=== PATIENT | female | born 1970 | race Caucasian/White ===

== ENCOUNTER 2016-07-26 18:07 | Emergency (ER) | payer SELFPAY ==
[~2016-07-26] VITALS: Ht 160 cm; Wt 59.0 kg
[2016-07-26 18:25] VITALS: BP 180/87
[2016-07-26] MEDS ORDERED: LEVO125T5 PO (19:12)
--- NOTE | 2016-07-26 19:12 | PHYS DOC ---
Past Medical History Past Medical History: Hypothyroid Past Surgical History: Cholecystectomy, , Tubal ligation Alcohol Use: None Drug Use: None Adult General Chief Complaint Chief Complaint: DIZZY/LIGHT HEADED HPI HPI Patient is a 45 year old female who presents with dizziness and out of her levothyroxine medication. Patient states she lost the prescription for her levothyroxine 2 weeks ago. Patient complains of dizziness which she relates to her not having her levothyroxine. Patient wants a prescription for her levothyroxine which is 125mcg daily does not want a workup for dizziness. Patient understands all risks including and disability however really feels that her symptoms are related to not taking her medication. Pertinent exam findings: Heart regular rate and rhythm Lungs clear to addition bilaterally ED course: Patient was seen and examined in the emergency room and since the patient does not want any workup done and just wants a prescription for levothyroxine she'll be discharged with a prescription. MDM: After reviewing the chart, CC/HPI/PMH, physical exam, I do not believe the patient has emergent medical condition warranting further workup and admission at this time. Patient declined all lab work and testing done for her dizziness and believes is due to the fact she is not taking her levothyroxine for hypothyroidism. Patient just wants a prescription for levothyroxine and elected to go home. Patient will follow-up with the PCP as outpatient. Patient was laid all risks including and disability in which she understands. Additional verbal discharge instructions were provided to the patient and that if symptoms get worse or any new symptoms arise that are worrisome to the patient she is to return to the emergency room immediately Review of Systems Review of Systems GEN: Denies fevers, chills, sweats HEENT: Denies blurred vision, sore throat CV: Denies chest pain RESP: Denies shortness of air, cough GI: Denies n/v/d NEURO: dizziness MSK: Denies weakness, joint pain/swelling Allergies Allergies Allergies Coded Allergies Type Severity Reaction Last Updated Verified No Known Drug Allergies 07/26/16 No Physical Exam Physical Exam GEN.: No apparent distress. Alert and oriented. HEENT: Head is normocephalic, atraumatic NECK: Supple. LUNGS: CTAB. HEART: RRR, S1, S2 present. Peripheral pulses intact ABDOMEN: Soft, nontender. Positive bowel sounds. EXTREMITIES: Without any cyanosis. NEUROLOGIC: Normal speech, normal tone PSYCHIATRIC: Normal affect, normal mood. SKIN: No ulcerations Current Patient Data Vital Signs Vital Signs Date Time Temp Pulse Resp B/P (MAP) Pulse Ox O2 Delivery O2 Flow Rate FiO2 07/26/16 18:25 98.0 65 14 180/87 (118) 99 Room Air 98.0 EKG EKG [] Radiology/Procedures Radiology/Procedures [] Course & Med Decision Making Course & Med Decision Making Pertinent Labs and Imaging studies reviewed. (See chart for details) [] Dragon Disclaimer Dragon Disclaimer This electronic medical record was generated, in whole or in part, using a voice recognition dictation system. Departure Departure Impression: Primary Impression: Dizziness Additional Impression: Hypothyroidism Disposition: 01 HOME, SELF-CARE Condition: IMPROVED Patient Instructions: Dizziness, [id number] Additional Instructions: Please follow up with her family doctor in one to 2 days and return symptoms increase. Scripts Levothyroxine Sodium (LEVOTHYROXINE SODIUM) 125 Mcg Tablet 1 TAB PO DAILY, #30 TAB 5 Refills Prov: KIM BRANCH DO 07/26/16 Problem Qualifiers Additional Impression: Hypothyroidism Hypothyroidism type: unspecified Qualified Codes: E03.9 - Hypothyroidism, unspecified KIM BRANCH DO July 26, 2016 19:12
== END 2016-07-26 19:21 | disposition home or self-care (01) ==
LOC: ER 18:07
DX: R42 Dizziness and giddiness (principal); E03.9 Hypothyroidism, unspecified; Z90.49 Acquired absence of other specified parts of digestive tract; Z98.51 Tubal ligation status
CPT/HCPCS: 99284

== ENCOUNTER 2017-05-08 11:48 | Emergency (ER) | payer SELFPAY ==
[2017-05-08] MEDS: CYCLOBENZAPRINE 10 MG TABLET. PO (12:55)
[2017-05-08] MEDS: HYDROcodone/APAP 5/325MG 1 TAB TABLET PO (12:55)
[2017-05-08] MEDS: NAPROXEN 500 MG TABLET PO (12:55)
== END 2017-05-08 12:58 | disposition home or self-care (01) ==
LOC: ER 11:48
DX: M54.41 Lumbago with sciatica, right side (principal); E03.9 Hypothyroidism, unspecified; Z90.49 Acquired absence of other specified parts of digestive tract; Z98.51 Tubal ligation status
CPT/HCPCS: 99284

== ENCOUNTER 2018-05-17 18:55 | Emergency (ER) | payer SELFPAY ==
[~2018-05-17] VITALS: Ht 160 cm; Wt 63.5 kg
[~2018-05-17 18:55] MED LIST: CYCL10TA2 PO; LEVO125T5 PO; METH4TAB2 PO; NAPR500T8 PO
[2018-05-17 20:05] VITALS: BP 148/71
[2018-05-17] MEDS: DIPHTH,PERTUSS(ACELL),TET TOX 0.5 ML DISP.SYRIN. VAX IM ONE (20:07)
[2018-05-17] MEDS: TETRACAINE 0.5% OPHTH SOLUTION 4ML BOTTLE. OD ONE (20:10)
[2018-05-17] MEDS: FLUORESCEIN OPHTH TEST STRIP. OD ONE (20:10)
[2018-05-17] MEDS ORDERED: HYDR-3164 PO (21:34)
[2018-05-17] MEDS ORDERED: ERYT1OIN6 OP (21:34)
--- NOTE | 2018-05-17 21:35 | PHYS DOC ---
Past Medical History Past Medical History: Hypothyroid Past Surgical History: Cholecystectomy, , Tubal ligation, Other Additional Past Surgical Histo: thyroidectomy Alcohol Use: Occasionally Drug Use: None Adult General Chief Complaint Chief Complaint: EYE PROBLEMS HPI HPI Patient is a 47 year old female who presents with possible foreign object to the right eye, patient states yesterday she was working with sheetrock with her regular eyeglasses and believes the sheetrock got into her eyes. Patient denies vision loss. Review of Systems Review of Systems Constitutional: Denies fever or chills [] Eyes: Reports sheetrock in the right eye, reports pain to the right eye, denies vision loss. Musculoskeletal: Denies back pain or joint pain [] Integument: Denies rash or skin lesions [] Neurologic: Denies headache, focal weakness or sensory changes [] All other systems were reviewed and found to be within normal limits, except as documented in this note. Current Medications Current Medications Current Medications Medications (Trade) Dose Ordered Sig/Matt Start Time Stop Time Status Last Admin Dose Admin Diphtheria/ Tetanus/Acell Pertussis (Boostrix) 0.5 ml ONCE ONCE 05/17/18 20:15 05/17/18 20:16 DC Fluorescein Sodium (Ful-Cristina) 1 strip 1X ONCE 05/17/18 20:15 05/17/18 20:16 DC 05/17/18 20:10 1 STRIP Tetracaine HCl (Tetracaine) 1 drop 1X ONCE 05/17/18 20:15 05/17/18 20:16 DC 05/17/18 20:10 1 DROP Allergies Allergies Allergies Coded Allergies Type Severity Reaction Last Updated Verified No Known Drug Allergies 07/26/16 No Physical Exam Physical Exam Constitutional: Well developed, well nourished, no acute distress, non-toxic appearance. [] HENT: Normocephalic, atraumatic, bilateral external ears normal, oropharynx moist, no oral exudates, nose normal. [] Eyes: PERRLA, EOMI, right conjunctiva is moderately injected, there is an obvious white-appearing object suspicious of sheetrock or corneal abrasion. The eye was stained with fluorescein, the same objects still showing on physical exam right in front of the iris. Skin: Warm, dry, no erythema, no rash. [] Back: No tenderness, no CVA tenderness. [] Extremities: No tenderness, no cyanosis, no clubbing, ROM intact, no edema. [] Neurologic: Alert and oriented X 3, normal motor function, normal sensory function, no focal deficits noted. [] Psychologic: Affect normal, judgement normal, mood normal. [] Current Patient Data Vital Signs Vital Signs Date Time Temp Pulse Resp B/P (MAP) Pulse Ox O2 Delivery O2 Flow Rate FiO2 05/17/18 20:05 98.2 77 16 148/71 (96) 97 Room Air 98.2 EKG EKG [] Radiology/Procedures Radiology/Procedures [] Course & Med Decision Making Course & Med Decision Making Pertinent Labs and Imaging studies reviewed. (See chart for details) This is a 47-year-old female patient presenting to the ED today to be evaluated because she got sheetrock to the right eye, on physical exam there is a white- appearing object in front of the iris suspicious of sheetrock patient has no vision loss, tetanus up-to-date. Provided cooler service supervisor for follow-up with tomorrow morning. Dragon Disclaimer Dragon Disclaimer This electronic medical record was generated, in whole or in part, using a voice recognition dictation system. Departure Departure Impression: Primary Impression: Corneal abrasion, right Disposition: HOME, SELF-CARE Condition: STABLE Referrals: MAG ROYAL MD (PCP) CHARLI PENG MD Contact the office and follow-up tomorrow morning Patient Instructions: Eye - Corneal Abrasion, Eye - Foreign Body Additional Instructions: You were evaluated in the emergency room there is suspicion of sheetrock in your right eye. We highly recommend you follow-up with cooler service supervisor tomorrow morning. Take the prescribed pain medicine as needed for pain. Use the prescribed eye ointment as ordered. Scripts Erythromycin Base (Erythromycin) 1 Gm Oint...g. 1 GM OP Q4HRS W/A, #1 MISC Apply her for an H2 the right eye every 4 hours while awake for 7 days. Prov: RADHAUNGShaquilleCHRIS OUTSOLE CEMENTER MACHINE 05/17/18 Hydrocodone/Apap 5-325 (NORCO 5-325 TABLET) 1 Each Tablet 1 TAB PO Q6HRS, #12 TAB Prov: MUTUNGACHRIS OUTSOLE CEMENTER MACHINE 05/17/18 Problem Qualifiers Primary Impression: Corneal abrasion, right Encounter type: initial encounter Qualified Codes: S05.01XA - Injury of conjunctiva and corneal abrasion without foreign body, right eye, initial encounter CHRIS JAMIL APRN May 17, 2018 21:35
== END 2018-05-17 22:05 | disposition home or self-care (01) ==
LOC: ER 18:55
DX: T15.01XA Foreign body in cornea, right eye, initial encounter (principal); Z90.49 Acquired absence of other specified parts of digestive tract; Z98.890 Other specified postprocedural states; Z98.49 Cataract extraction status, unspecified eye; E89.0 Postprocedural hypothyroidism; W45.8XXA Other foreign body or object entering through skin, initial encounter; Y93.89 Activity, other specified; Y92.89 Other specified places as the place of occurrence of the external cause; Y99.0 Civilian activity done for income or pay
CPT/HCPCS: 99283